=== PATIENT | female | born 1960 | race Caucasian/White ===

== ENCOUNTER 2020-03-10 10:29 | Inpatient (IN) | payer MEDICARE, OTHER ==
[~2020-03-10] VITALS: Ht 152.4 cm; Wt 68.0 kg
[~2020-03-10 10:29] MED LIST: APRESOLINE100 MG PO; BUMETANIDE2 MG PO; CLOPIDOGREL75 MG PO; COZAAR100 MG PO; ELAVIL50 MG PO; FLEXERIL10 MG PO; FLONASE ALLER15.8 ML; JANUVIA50 MG PO; NORVASC5 MG PO; PERCOCET 7.5/321 TAB PO; RENVELA800 MG PO; SINGULAIR10 MG PO
[2020-03-10 11:54] LABS: BASOPHIL 0.9 % (0-2); EOSINOPHIL 2.4 % (0-5); HCT 30.9 % (37.0-47.0); HGB 9.1 g/dl (12.5-16.0); LYMPHOCYTE 5.9 % (15-48); MCH 30.8 pg (25.0-31.0); MCHC 29.4 g/dL (32.0-36.0); MCV 104.7 fL (78.0-100.0); MONOCYTE 4.8 % (0-12); MPV 9.5 fL (6.0-9.5); NEUTROPHIL 84.8 % (41-80); NRBC 0; PLT 348 K/uL (150-400); RBC 2.95 M/uL (4.20-5.40); RDW 17.4 % (11.5-14.0); WBC 17.7 K/uL (4.0-10.5)
[2020-03-10 12:25] LABS: ALBUMIN 2.6 g/dL (3.4-5.0); BILIRUBIN - TOTAL 0.3 mg/dL (0.2-1.0); BUN/CREAT RATIO (CALC) 4.5 RATIO; C-REACTIVE PROTEIN 5.9 mg/dL (<=0.90); CREATININE 5.98 mg/dL (0.51-0.95); GLOBULIN (CALCULATION) 4.5 g/dL; MAGNESIUM 2.4 mg/dL (1.8-2.4); POTASSIUM 4.4 mmol/L (3.5-5.1); TOTAL PROTEIN 7.1 g/dL (6.4-8.2)
[2020-03-10 12:55] LABS: LACTIC ACID 0.5 mmol/L (0.4-1.9)
[2020-03-10] MEDS ORDERED: ASPIRIN EC81 MG PO (15:38)
[2020-03-10] MEDS ORDERED: DUONEB 2.5-0.5M1 AMP NEB (15:45)
[2020-03-10] MEDS ORDERED: DAKIN'S 1/4 ST480 ML TOP (15:48)
[2020-03-10 19:20] LABS: IRON % SATURATION 12.2 %SAT (20-50)
--- NOTE | 2020-03-10 19:35 | NUR ---
Pt. son brought phone electrical installer for patient and asked for $220 for parts to fix the patients car. Security was given $211 to give to the son. Pt. states that she does want a receipt. Son was not allowed on floor because pt. is on [employer]. Pt. gave money to RN, RN gave money to security, security is to give the money to the son.
[2020-03-10 19:46] LABS: RETICULOCYTE COUNT 4.1 % (1.0-2.0)
--- NOTE | 2020-03-10 19:59 | NUR ---
PT ARRIVED TO THE HOSPITAL WITH HER DIALYSIS FISTULA ACCESSED FROM [facility]. NOTIFIED VP PRODUCT MANAGEMENT [employer]ERNARD, INSTRUCTED NOT TO TOUCH, WATCH FOR BLEED
--- NOTE | 2020-03-10 22:05 | NUR ---
PT. HAS NECKLACE THAT IS AN URN IN ROOM. WAS TOLD IN REPORT THAT THEY WERE NOT SURE IF IT WAS ADDED TO PT. BELONGINGS LIST.
[2020-03-11 05:50] LABS: EOSINOPHIL 2.7 % (0-5); HCT 22.8 % (37.0-47.0); HGB 6.7 g/dl (12.5-16.0); LYMPHOCYTE 16.1 % (15-48); MCH 30.3 pg (25.0-31.0); MCHC 29.4 g/dL (32.0-36.0); MCV 103.2 fL (78.0-100.0); MONOCYTE 9.5 % (0-12); MPV 9.9 fL (6.0-9.5); NEUTROPHIL 69.9 % (41-80); NRBC 0; PLT 223 K/uL (150-400); RBC 2.21 M/uL (4.20-5.40); WBC 5.9 K/uL (4.0-10.5)
[2020-03-11 06:00] LABS: BUN/CREAT RATIO (CALC) 3.8 RATIO; CREATININE 4.48 mg/dL (0.51-0.95); MAGNESIUM 2.2 mg/dL (1.8-2.4); PHOSPHORUS 5.5 mg/dL (2.6-4.7); POTASSIUM 4.4 mmol/L (3.5-5.1)
--- NOTE | 2020-03-11 08:29 | NUR ---
PT LIVES AT HOME, SON LIVES WITH HIM. PT HAS A WALKER AND IS CURRENT WITH [facility] (DOC NOTIFIED).
== END 2020-03-11 13:18 | disposition home health service (06) | DRG 640 ==
LOC: FER 10:29 → FICU 13:11
PROVIDERS: Emergency Medicine; Internal Medicine; ADMIT Allergy & Immunology Allergy
PROC: 5A1D70Z Performance of Urinary Filtration, Intermittent, Less than 6 Hours Per Day (ICD-10-PCS; principal; 2020-03-10)
PROC: 5A09357 Assistance with Respiratory Ventilation, Less than 24 Consecutive Hours, Continuous Positive Airway Pressure (ICD-10-PCS; 2020-03-10)
DX: E87.70 Fluid overload, unspecified (principal); J96.01 Acute respiratory failure with hypoxia; R65.11 Systemic inflammatory response syndrome (SIRS) of non-infectious origin with acute organ dysfunction; N18.6 End stage renal disease; J96.02 Acute respiratory failure with hypercapnia; I12.0 Hypertensive chronic kidney disease with stage 5 chronic kidney disease or end stage renal disease; L97.429 Non-pressure chronic ulcer of left heel and midfoot with unspecified severity; L89.152 Pressure ulcer of sacral region, stage 2; E11.621 Type 2 diabetes mellitus with foot ulcer; I87.8 Other specified disorders of veins; Z20.828 Contact with and (suspected) exposure to other viral communicable diseases; D63.1 Anemia in chronic kidney disease; J44.9 Chronic obstructive pulmonary disease, unspecified; E11.22 Type 2 diabetes mellitus with diabetic chronic kidney disease; E03.9 Hypothyroidism, unspecified; F17.210 Nicotine dependence, cigarettes, uncomplicated; E11.40 Type 2 diabetes mellitus with diabetic neuropathy, unspecified; Z99.2 Dependence on renal dialysis; Z89.511 Acquired absence of right leg below knee; Z79.82 Long term (current) use of aspirin; Z79.02 Long term (current) use of antithrombotics/antiplatelets; Z79.899 Other long term (current) drug therapy; Z79.84 Long term (current) use of oral hypoglycemic drugs
CPT/HCPCS: 36415; 36600; 71045; 80048; 80053; 82607; 82728; 82803; 82962; 83540; 83550; 83605; 83615; 83735; 83880; 84100; 84145; 84484; 85025; 86140; 87040; 93005; 94010; 94640; 94660; J1644; J1956; U0002

== ENCOUNTER 2020-04-07 21:53 | Emergency (ER) | payer MEDICARE ==
[~2020-04-07 21:53] MED LIST changes: +ASPIRIN EC81 MG PO; +DAKIN'S 1/4 ST480 ML TOP; +DUONEB 2.5-0.5M1 AMP NEB
[2020-04-08 00:46] LABS: BASOPHIL 0.8 % (0-2); EOSINOPHIL 2.5 % (0-5); HCT 13.9 % (37.0-47.0); LYMPHOCYTE 13.9 % (15-48); MCH 29.8 pg (25.0-31.0); MCHC 30.2 g/dL (32.0-36.0); MCV 98.6 fL (78.0-100.0); MONOCYTE 7.9 % (0-12); MPV 10.6 fL (6.0-9.5); NEUTROPHIL 73.6 % (41-80); NRBC 0.4; PLT 235 K/uL (150-400); RBC 1.41 M/uL (4.20-5.40); RDW 16.8 % (11.5-14.0); WBC 7.6 K/uL (4.0-10.5)
[2020-04-08 00:51] LABS: HGB 4.2 g/dl (12.5-16.0)
[2020-04-08 00:57] LABS: LACTIC ACID 1.3 mmol/L (0.4-1.9)
[2020-04-08 01:06] LABS: ALBUMIN 2.4 g/dL (3.4-5.0); BILIRUBIN - TOTAL 0.4 mg/dL (0.2-1.0); BUN/CREAT RATIO (CALC) 7.3 RATIO; CREATININE 3.44 mg/dL (0.51-0.95); GLOBULIN (CALCULATION) 3.8 g/dL; MAGNESIUM 2.1 mg/dL (1.8-2.4); PHOSPHORUS 4.5 mg/dL (2.6-4.7); POTASSIUM 3.8 mmol/L (3.5-5.1); TOTAL PROTEIN 6.2 g/dL (6.4-8.2)
[2020-04-08 03:18] LABS: BILIRUBIN NEGATIVE (NEGATIVE); BLOOD NEGATIVE Ery/uL (NEGATIVE); CLARITY CLEAR (CLEAR); COLOR YELLOW (YELLOW); GLUCOSE (U) NORMAL (NORMAL); LEUKOCYTES NEGATIVE Leu/uL (NEGATIVE); NITRITE NEGATIVE (NEGATIVE); PROTEIN 2+ mg/dL (NEGATIVE); SPECIFIC GRAVITY 1.015 (1.001-1.030); UROBILINOGEN 0.2 mg/dL (0.2-1.0)
[2020-04-08 03:29] LABS: BACTERIA TRACE
[2020-04-08 20:32] LABS: BASOPHIL 0.9 % (0-2); EOSINOPHIL 0.9 % (0-5); HCT 27.7 % (37.0-47.0); LYMPHOCYTE 4.5 % (15-48); MCH 29.8 pg (25.0-31.0); MCHC 31.8 g/dL (32.0-36.0); MCV 93.9 fL (78.0-100.0); MPV 10.1 fL (6.0-9.5); NEUTROPHIL 84.9 % (41-80); NRBC 0.5; PLT 258 K/uL (150-400); RBC 2.95 M/uL (4.20-5.40); RDW 16.6 % (11.5-14.0); WBC 12.6 K/uL (4.0-10.5)
[2020-04-08 20:34] LABS: HGB 8.8 g/dl (12.5-16.0)
[2020-04-08 20:48] LABS: ANISOCYTOSIS SLIGHT; BAND 7 % (0-10); EOSINOPHIL(M) 3 % (0-5); LYMPHOCYTE(M) 7 % (15-48); MONOCYTE(M) 10 % (0-12); NEUTROPHILS(M) 73 % (41-80); PLATELET ESTIMATE NORMAL; PLATELET MORPHOLOGY NORMAL; POLYCHROMASIA SLIGHT; TOTAL CELL COUNT 100
== END 2020-04-09 00:40 | disposition other institution (70) ==
LOC: FER 21:53
PROVIDERS: Emergency Medicine; Emergency Medicine Emergency Medical Services
DX: D64.9 Anemia, unspecified (principal); I24.8 Other forms of acute ischemic heart disease; E11.22 Type 2 diabetes mellitus with diabetic chronic kidney disease; N18.6 End stage renal disease; K80.80 Other cholelithiasis without obstruction; K82.8 Other specified diseases of gallbladder; F17.210 Nicotine dependence, cigarettes, uncomplicated; Z88.8 Allergy status to other drugs, medicaments and biological substances; Z99.2 Dependence on renal dialysis; Z20.822 Contact with and (suspected) exposure to COVID-19
CPT/HCPCS: 36415; 36430; 36600; 71045; 74018; 80048; 80053; 81001; 82150; 82803; 83605; 83735; 84100; 84145; 84484; 85025; 86850; 86870; 86880; 86900; 86901; 86922; 87040; 87076; 87077; 87088; 87186; 93005; 94640; 94660; 96374; 96375; 96376; J1200; J1940; J2930; J7040; J7050; P9016; U0002

== ENCOUNTER 2020-04-08 22:19 | Emergency (ER) | payer MEDICARE ==
[2020-04-08 23:09] LABS: BUN/CREAT RATIO (CALC) 7.1 RATIO; CREATININE 4.91 mg/dL (0.51-0.95); POTASSIUM 4.1 mmol/L (3.5-5.1)
== END 2020-04-09 00:40 | disposition other institution (70) ==
LOC: FER 22:19
PROVIDERS: Emergency Medicine
DX: J81.1 Chronic pulmonary edema (principal); E11.9 Type 2 diabetes mellitus without complications; F17.210 Nicotine dependence, cigarettes, uncomplicated; Z99.2 Dependence on renal dialysis
CPT/HCPCS: 36415; 36600; 80048; 82803; 84484; 93005; 94640; J2930

== ENCOUNTER 2020-07-11 19:03 | Emergency (ER) | payer MEDICARE ==
[2020-07-11 21:29] LABS: BASOPHIL 0.6 % (0-2); HCT 16.6 % (37.0-47.0); LYMPHOCYTE 9.4 % (15-48); MCH 31.4 pg (25.0-31.0); MCHC 31.9 g/dL (32.0-36.0); MCV 98.2 fL (78.0-100.0); MONOCYTE 7.8 % (0-12); MPV 10.5 fL (6.0-9.5); NEUTROPHIL 77.5 % (41-80); NRBC 0; PLT 266 K/uL (150-400); RBC 1.69 M/uL (4.20-5.40); RDW 16.5 % (11.5-14.0); WBC 12.3 K/uL (4.0-10.5)
[2020-07-11 21:38] LABS: HGB 5.3 g/dl (12.5-16.0)
[2020-07-11 21:47] LABS: ALBUMIN 2.6 g/dL (3.4-5.0); BILIRUBIN - TOTAL 0.4 mg/dL (0.2-1.0); BUN/CREAT RATIO (CALC) 4.4 RATIO; CREATININE 6.3 mg/dL (0.51-0.95); GLOBULIN (CALCULATION) 3.4 g/dL; POTASSIUM 3.5 mmol/L (3.5-5.1)
== END 2020-07-12 06:30 | disposition other institution (70) ==
LOC: FER 19:03
PROVIDERS: Student in an Organized Health Care Education/Training Program
DX: E87.70 Fluid overload, unspecified (principal); I44.7 Left bundle-branch block, unspecified; E11.9 Type 2 diabetes mellitus without complications; J44.9 Chronic obstructive pulmonary disease, unspecified; I10 Essential (primary) hypertension; Z99.2 Dependence on renal dialysis
CPT/HCPCS: 36415; 36430; 36600; 71045; 71046; 80053; 82803; 83880; 84484; 85025; 86850; 86870; 86880; 86900; 86901; 86922; 93005; J2001; P9016

== ENCOUNTER 2020-07-23 10:03 | Emergency (ER) | payer MEDICARE ==
[2020-07-23 10:54] LABS: BASOPHIL 0.7 % (0-2); EOSINOPHIL 2.8 % (0-5); HCT 32.5 % (37.0-47.0); LYMPHOCYTE 4.1 % (15-48); MCH 29.9 pg (25.0-31.0); MCHC 30.8 g/dL (32.0-36.0); MCV 97.3 fL (78.0-100.0); MONOCYTE 4.8 % (0-12); MPV 9.9 fL (6.0-9.5); NEUTROPHIL 86.5 % (41-80); NRBC 0; PLT 293 K/uL (150-400); RBC 3.34 M/uL (4.20-5.40); RDW 16.7 % (11.5-14.0); WBC 16.1 K/uL (4.0-10.5)
[2020-07-23 11:00] LABS: CORONAVIRUS 2019 SARS-COV-2 NEGATIVE (NEGATIVE); INFLUENZA A NAA NEGATIVE (NEGATIVE)
[2020-07-23 11:14] LABS: ALBUMIN 2.7 g/dL (3.4-5.0); BILIRUBIN - TOTAL 0.6 mg/dL (0.2-1.0); BUN/CREAT RATIO (CALC) 5.8 RATIO; CREATININE 5.9 mg/dL (0.51-0.95); GLOBULIN (CALCULATION) 3.7 g/dL; TOTAL PROTEIN 6.4 g/dL (6.4-8.2)
[2020-07-23 11:19] LABS: INR 1.08 (0.9-1.2); PROTHROMBIN TIME 13.3 SECONDS (11.4-13.6)
[2020-07-23 11:20] LABS: LACTIC ACID 0.9 mmol/L (0.4-1.9); PRO-BNP 28361 pg/mL (<125); PTT 27.9 SECONDS (22.2-34.7)
== END 2020-07-23 15:48 | disposition other institution (70) ==
LOC: FER 10:03
PROVIDERS: Internal Medicine
DX: J18.9 Pneumonia, unspecified organism (principal); R65.11 Systemic inflammatory response syndrome (SIRS) of non-infectious origin with acute organ dysfunction; J96.01 Acute respiratory failure with hypoxia; I50.31 Acute diastolic (congestive) heart failure; N18.6 End stage renal disease; I49.3 Ventricular premature depolarization; J44.9 Chronic obstructive pulmonary disease, unspecified; F17.210 Nicotine dependence, cigarettes, uncomplicated; Z89.511 Acquired absence of right leg below knee; Z99.2 Dependence on renal dialysis; Z79.02 Long term (current) use of antithrombotics/antiplatelets; Z79.899 Other long term (current) drug therapy; Z20.822 Contact with and (suspected) exposure to COVID-19
CPT/HCPCS: 36415; 36600; 71045; 80053; 82803; 83605; 83880; 84145; 84484; 85025; 85610; 85730; 87040; 87077; 87186; 93005; J2543; U0002

== ENCOUNTER 2020-08-20 03:23 | Emergency (ER) | payer MEDICARE ==
[2020-08-20 04:26] LABS: BASOPHIL 0.7 % (0-2); EOSINOPHIL 2.5 % (0-5); HCT 26.7 % (37.0-47.0); HGB 8.1 g/dl (12.5-16.0); LYMPHOCYTE 4.7 % (15-48); MCH 30.6 pg (25.0-31.0); MCHC 30.3 g/dL (32.0-36.0); MCV 100.8 fL (78.0-100.0); MONOCYTE 4.7 % (0-12); MPV 10.6 fL (6.0-9.5); NEUTROPHIL 85.1 % (41-80); NRBC 0.2; PLT 231 K/uL (150-400); RBC 2.65 M/uL (4.20-5.40); RDW 18.6 % (11.5-14.0)
[2020-08-20 04:46] LABS: INR 1.11 (0.9-1.2); PROTHROMBIN TIME 13.6 SECONDS (11.4-13.6); PTT 29.9 SECONDS (22.2-34.7)
[2020-08-20 04:57] LABS: IRON % SATURATION 15.7 %SAT (20-50)
[2020-08-20 04:58] LABS: ALBUMIN 2.7 g/dL (3.4-5.0); BILIRUBIN - TOTAL 0.6 mg/dL (0.2-1.0); BUN/CREAT RATIO (CALC) 4.8 RATIO; CREATININE 5.23 mg/dL (0.51-0.95); GLOBULIN (CALCULATION) 4.4 g/dL; MAGNESIUM 1.8 mg/dL (1.8-2.4); POTASSIUM 3.8 mmol/L (3.5-5.1); TOTAL PROTEIN 7.1 g/dL (6.4-8.2)
[2020-08-20 05:02] LABS: LACTIC ACID 0.6 mmol/L (0.4-1.9)
[2020-08-20 05:05] LABS: PRO-BNP > 35000 pg/mL (<125)
== END 2020-08-20 09:28 | disposition other institution (70) ==
LOC: FER 03:23
PROVIDERS: Emergency Medicine
DX: J96.01 Acute respiratory failure with hypoxia (principal); R65.11 Systemic inflammatory response syndrome (SIRS) of non-infectious origin with acute organ dysfunction; J81.1 Chronic pulmonary edema; E11.22 Type 2 diabetes mellitus with diabetic chronic kidney disease; N18.6 End stage renal disease; F17.200 Nicotine dependence, unspecified, uncomplicated; Z20.822 Contact with and (suspected) exposure to COVID-19
CPT/HCPCS: 31500; 36415; 36600; 71045; 80053; 82803; 83540; 83550; 83605; 83735; 83880; 84145; 84484; 85025; 85610; 85730; 87040; 87077; 87186; 93005; 94002; 94640; 94664; 94760; 96365; 96366; 96367; 96375; J2543; J2704; J3010; U0002

== ENCOUNTER 2020-08-30 10:02 | Emergency (ER) | payer MEDICARE ==
[2020-08-30 11:02] LABS: INR 1.14 (0.9-1.2); PROTHROMBIN TIME 13.9 SECONDS (11.4-13.6); PTT 31.6 SECONDS (22.2-34.7)
[2020-08-30 11:19] LABS: BASOPHIL 0.8 % (0-2); HCT 27.9 % (37.0-47.0); HGB 8.2 g/dl (12.5-16.0); LYMPHOCYTE 3.8 % (15-48); MCH 31.2 pg (25.0-31.0); MCHC 29.4 g/dL (32.0-36.0); MONOCYTE 4.3 % (0-12); MPV 10.1 fL (6.0-9.5); NEUTROPHIL 87.4 % (41-80); NRBC 0; PLT 214 K/uL (150-400); RBC 2.63 M/uL (4.20-5.40); RDW 18.5 % (11.5-14.0)
[2020-08-30 11:23] LABS: MCV 106.1 fL (78.0-100.0)
[2020-08-30 11:33] LABS: ALBUMIN 2.9 g/dL (3.4-5.0); BILIRUBIN - TOTAL 0.7 mg/dL (0.2-1.0); BUN/CREAT RATIO (CALC) 5.7 RATIO; CREATININE 7.18 mg/dL (0.51-0.95); GLOBULIN (CALCULATION) 4.4 g/dL; MAGNESIUM 1.7 mg/dL (1.8-2.4); TOTAL PROTEIN 7.3 g/dL (6.4-8.2)
[2020-08-30 11:39] LABS: POTASSIUM 6.6 mmol/L (3.5-5.1)
== END 2020-08-30 13:20 | disposition other institution (70) ==
LOC: FER 10:02
PROVIDERS: Emergency Medicine
DX: I13.2 Hypertensive heart and chronic kidney disease with heart failure and with stage 5 chronic kidney disease, or end stage renal disease (principal); I50.1 Left ventricular failure, unspecified; N18.6 End stage renal disease; E87.5 Hyperkalemia; Z20.822 Contact with and (suspected) exposure to COVID-19; F17.210 Nicotine dependence, cigarettes, uncomplicated; Z79.899 Other long term (current) drug therapy
CPT/HCPCS: 36415; 36600; 71045; 80053; 82803; 83735; 84484; 85025; 85610; 85730; 87040; 87070; 87205; 93005; 94762; U0002

== ENCOUNTER 2020-09-23 11:37 | Emergency (ER) | payer MEDICARE, OTHER ==
[2020-09-23 12:05] LABS: EOSINOPHIL 6.3 % (0-5); HCT 29.6 % (37.0-47.0); HGB 8.9 g/dl (12.5-16.0); LYMPHOCYTE 10.5 % (15-48); MCHC 30.1 g/dL (32.0-36.0); MCV 99.7 fL (78.0-100.0); MONOCYTE 6.4 % (0-12); MPV 9.7 fL (6.0-9.5); NRBC 0; PLT 356 K/uL (150-400); RBC 2.97 M/uL (4.20-5.40); RDW 16.6 % (11.5-14.0); WBC 12.8 K/uL (4.0-10.5)
[2020-09-23 12:21] LABS: ALBUMIN 3.2 g/dL (3.4-5.0); BILIRUBIN - TOTAL 0.4 mg/dL (0.2-1.0); BUN/CREAT RATIO (CALC) 6.2 RATIO; CREATININE 4.02 mg/dL (0.51-0.95); GLOBULIN (CALCULATION) 4.4 g/dL; POTASSIUM 5.1 mmol/L (3.5-5.1); TOTAL PROTEIN 7.6 g/dL (6.4-8.2)
[2020-09-23 12:46] LABS: PRO-BNP 32399 pg/mL (<125)
== END 2020-09-23 14:34 | disposition left against medical advice (07) ==
LOC: FER 11:37
PROVIDERS: Emergency Medicine
DX: A41.9 Sepsis, unspecified organism (principal); J44.1 Chronic obstructive pulmonary disease with (acute) exacerbation; J96.90 Respiratory failure, unspecified, unspecified whether with hypoxia or hypercapnia; I50.9 Heart failure, unspecified; Z20.822 Contact with and (suspected) exposure to COVID-19
CPT/HCPCS: 36415; 36600; 71045; 80053; 82803; 83605; 83880; 84145; 84484; 85025; 87040; 93005; 94640; 94660; 94664; 94762; J2060; U0002

== ENCOUNTER 2021-05-02 10:35 | Emergency (ER) | payer MEDICARE, OTHER ==
[2021-05-02] MEDS ORDERED: CLEOCIN300 MG PO (12:35)
== END 2021-05-03 11:45 | disposition home or self-care (01) ==
LOC: FER 10:35
DX: S43.422A Sprain of left rotator cuff capsule, initial encounter (principal); T87.43 Infection of amputation stump, right lower extremity; E11.628 Type 2 diabetes mellitus with other skin complications; L03.115 Cellulitis of right lower limb; I12.0 Hypertensive chronic kidney disease with stage 5 chronic kidney disease or end stage renal disease; E11.22 Type 2 diabetes mellitus with diabetic chronic kidney disease; N18.6 End stage renal disease; Z99.2 Dependence on renal dialysis; X58.XXXA Exposure to other specified factors, initial encounter; Y92.009 Unspecified place in unspecified non-institutional (private) residence as the place of occurrence of the external cause; Y83.5 Amputation of limb(s) as the cause of abnormal reaction of the patient, or of later complication, without mention of misadventure at the time of the procedure
CPT/HCPCS: 73030; J1170

== ENCOUNTER 2021-05-02 21:02 | Emergency (ER) | payer MEDICARE, OTHER ==
[~2021-05-02 21:02] MED LIST changes: +CLEOCIN300 MG PO
== END 2021-05-03 10:50 | disposition home or self-care (01) ==
LOC: FER 21:02
DX: S46.912A Strain of unspecified muscle, fascia and tendon at shoulder and upper arm level, left arm, initial encounter (principal); L89.629 Pressure ulcer of left heel, unspecified stage; J44.9 Chronic obstructive pulmonary disease, unspecified; E11.22 Type 2 diabetes mellitus with diabetic chronic kidney disease; N18.6 End stage renal disease; Z99.2 Dependence on renal dialysis; Z53.29 Procedure and treatment not carried out because of patient's decision for other reasons; Z99.81 Dependence on supplemental oxygen; X50.9XXA Other and unspecified overexertion or strenuous movements or postures, initial encounter
CPT/HCPCS: 71250; 72170; 73070

== ENCOUNTER 2021-07-16 21:41 | Emergency (ER) | payer MEDICARE, OTHER | END 2021-07-17 04:10 | disposition home or self-care (01) | LOC: FER 21:41 | DX: K94.23 Gastrostomy malfunction (principal); J44.9 Chronic obstructive pulmonary disease, unspecified; I12.9 Hypertensive chronic kidney disease with stage 1 through stage 4 chronic kidney disease, or unspecified chronic kidney disease; N18.9 Chronic kidney disease, unspecified | CPT/HCPCS: 74019 ==

== ENCOUNTER 2021-07-22 08:10 | Emergency (ER) | payer MEDICARE, OTHER ==
[2021-07-22 09:32] LABS: BASOPHIL 0.6 % (0-2); EOSINOPHIL 0.1 % (0-5); HCT 25.8 % (37.0-47.0); HGB 7.6 g/dl (12.5-16.0); LYMPHOCYTE 3.2 % (15-48); MCH 32.2 pg (25.0-31.0); MCHC 29.5 g/dL (32.0-36.0); MCV 109.3 fL (78.0-100.0); NEUTROPHIL 91.3 % (41-80); NRBC 0.1; PLT 141 K/uL (150-400); RBC 2.36 M/uL (4.20-5.40); RDW 22.7 % (11.5-14.0); WBC 17.9 K/uL (4.0-10.5)
[2021-07-22 09:41] LABS: INR 1.36 (0.9-1.2); PROTHROMBIN TIME 16.1 SECONDS (11.8-13.4)
[2021-07-22 09:54] LABS: LACTIC ACID 1.9 mmol/L (0.4-1.9)
[2021-07-22 10:01] LABS: CORONAVIRUS 2019 SARS-COV-2 NEGATIVE (NEGATIVE); INFLUENZA A NAA NEGATIVE (NEGATIVE)
[2021-07-22 10:04] LABS: CREATININE 4.86 mg/dL (0.51-0.95)
[2021-07-22 10:05] LABS: ALBUMIN 1.8 g/dL (3.4-5.0); BILIRUBIN - TOTAL 0.5 mg/dL (0.2-1.0); GLOBULIN (CALCULATION) 4.3 g/dL; MAGNESIUM 1.9 mg/dL (1.8-2.4); TOTAL PROTEIN 6.1 g/dL (6.4-8.2)
[2021-07-22 10:41] LABS: BILIRUBIN NEGATIVE (NEGATIVE); BLOOD 1+ Ery/uL (NEGATIVE); CLARITY CLEAR (CLEAR); COLOR YELLOW (YELLOW); GLUCOSE (U) NORMAL (NORMAL); LEUKOCYTES 1+ Leu/uL (NEGATIVE); NITRITE NEGATIVE (NEGATIVE); PROTEIN 2+ mg/dL (NEGATIVE); UROBILINOGEN 0.2 mg/dL (0.2-1.0)
[2021-07-22 10:53] LABS: BACTERIA 4+; URINARY WBC TNTC
[2021-07-22 10:54] LABS: SQUAMOUS EPITHELIAL CELLS RARE; TRANSITIONAL EPITHELIAL CELLS RARE
== END 2021-07-22 19:42 | disposition other institution (70) ==
LOC: FER 08:10
PROVIDERS: Emergency Medicine
DX: A41.9 Sepsis, unspecified organism (principal); L03.115 Cellulitis of right lower limb; R65.20 Severe sepsis without septic shock; I21.4 Non-ST elevation (NSTEMI) myocardial infarction; E11.22 Type 2 diabetes mellitus with diabetic chronic kidney disease; I13.2 Hypertensive heart and chronic kidney disease with heart failure and with stage 5 chronic kidney disease, or end stage renal disease; I50.9 Heart failure, unspecified; N18.6 End stage renal disease; D63.1 Anemia in chronic kidney disease; N39.0 Urinary tract infection, site not specified; J44.9 Chronic obstructive pulmonary disease, unspecified; Z88.0 Allergy status to penicillin; Z99.2 Dependence on renal dialysis; Z88.1 Allergy status to other antibiotic agents; Z20.822 Contact with and (suspected) exposure to COVID-19
CPT/HCPCS: 36415; 36600; 71045; 73590; 73630; 80053; 81001; 82803; 83605; 83735; 83880; 84145; 84484; 85025; 85610; 85730; 87040; 87076; 87088; 87186; 93005; 96365; 96366; 96367; J1644; J2543; J3370; J7050; U0002